=== PATIENT | female | born 1970 | race Caucasian/White ===

== ENCOUNTER 2019-05-01 13:20 | Emergency (ER) | payer OTHER ==
[~2019-05-01] VITALS: Ht 170.2 cm; Wt 69.4 kg
[2019-05-01] MEDS ORDERED: CYCLOBENZAPRINE10 MG PO (17:53)
[2019-05-01] MEDS ORDERED: VOLTAREN-XR100 MG PO (17:53)
== END 2019-05-01 17:58 | disposition home or self-care (01) ==
LOC: ER 13:20
DX: N39.0 Urinary tract infection, site not specified (principal); M54.5 Low back pain; R35.0 Frequency of micturition; B96.89 Other specified bacterial agents as the cause of diseases classified elsewhere

== ENCOUNTER 2020-04-25 07:45 | Inpatient (IN) | payer OTHER ==
[~2020-04-25] VITALS: Ht 170.2 cm; Wt 70.8 kg
[~2020-04-25 07:45] MED LIST: CYCLOBENZAPRINE10 MG PO; VOLTAREN-XR100 MG PO
[2020-04-29] MEDS ORDERED: Tylenol #3 PO (08:45)
== END 2020-04-29 08:00 | disposition home or self-care (01) | DRG 743 ==
LOC: O/R 04-28 06:00 → SURH 04-28 06:00 → CIR.AMB 04-28 07:00 → O/R 04-28 07:00 → SURH 04-28 07:45 → EDSTATUS 04-28 07:45 → O/R 04-28 07:45 → SURH 04-28 09:00 → O/R 04-28 11:46 → OB/GYN 04-28 11:46 → O/R 04-29 08:00 → CIR.AMB 04-29 08:00 → OB/GYN 04-29 10:21
PROVIDERS: ADMIT Obstetrics & Gynecology; ATTEND Obstetrics & Gynecology
PROC: 0USG7ZZ Reposition Vagina, Via Natural or Artificial Opening (ICD-10-PCS; 2020-04-28)
PROC: 0TQB7ZZ Repair Bladder, Via Natural or Artificial Opening (ICD-10-PCS; 2020-04-28)
PROC: 0TJB8ZZ Inspection of Bladder, Via Natural or Artificial Opening Endoscopic (ICD-10-PCS; 2020-04-28)
PROC: 0UT97ZZ Resection of Uterus, Via Natural or Artificial Opening (ICD-10-PCS; principal; 2020-04-28 09:00)
DX: D25.1 Intramural leiomyoma of uterus (principal); D25.0 Submucous leiomyoma of uterus; D25.2 Subserosal leiomyoma of uterus; N81.11 Cystocele, midline